=== PATIENT | female | born 1965 | race Caucasian/White ===

== ENCOUNTER 2023-06-20 16:40 | Inpatient (IN) | payer OTHER ==
[~2023-06-20] VITALS: Ht 154.9 cm; Wt 50.4 kg
[2023-06-20 17:29] VITALS: PULSE 129; RESP 18; O2SAT 96
[2023-06-20 17:48] LABS: Alanine Aminotransferase 12 U/L (7-40); Albumin 4.5 g/dL (3.2-4.8); Alkaline Phosphatase 122 U/L (46-116); Anion Gap 8 (5-15); Aspartate Aminotransferase < 8 U/L (13-40); BUN/Creatinine Ratio 11.3 (10.0-20.0); Blood Urea Nitrogen 8 mg/dL (9-23); Calcium 9.6 mg/dL (8.7-10.4); Carbon Dioxide 23 mmol/L (20-30); Chloride 100 mmol/L (98-107); Glucose 129 mg/dL (74-106); Magnesium 1.7 mg/dL (1.6-2.6); Potassium 4.2 mmol/L (3.5-5.1); Sodium 131 mmol/L (136-145)
[2023-06-20 17:49] LABS: Bilirubin, Total 1.2 mg/dL (0.2-1.0); Total Protein 7.1 g/dL (5.7-8.2)
[2023-06-20 18:18] LABS: Basophils # (auto) 0.1 10 ^3/uL (0-0.2); Basophils % (auto) 0.3 % (0.0-2.0); Eosinophils # (auto) 0 10 ^3/uL (0-0.8); Eosinophils % (auto) 0.1 % (0.0-7.0); Hematocrit 46.2 % (36.0-46.0); Lymphocytes % (auto) 10.8 % (10.0-50.0); Mean Corpuscular Hemoglobin 32.6 pg (28.0-32.0); Mean Corpuscular Hgb Conc. 34.7 g/dL (32.0-36.0); Mean Corpuscular Volume 94.1 fL (80.0-100.0); Monocytes # (auto) 1.7 10 ^3/uL (0-1.3); Monocytes % (auto) 9.3 % (0.0-12.0); Neutrophils # (auto) 14.7 10 ^3/uL (1.6-8.6); Neutrophils % (auto) 79.5 % (37.0-80.0); Nucleated Red Blood Cells % 0.1 %; Red Blood Cells 4.91 10^6/uL (4.0-5.20); Red Cell Distribution Width 13.7 % (11.8-14.3); White Blood Cell 18.6 10^3/uL (4.4-10.8)
[2023-06-20] MEDS ORDERED: SODIUM CHLORIDE 0.9% 1,000 ML IV ONE ×2 (18:30→20:45)
[2023-06-20] MEDS ORDERED: IOHEXOL 300 MG/ML 100ML BOTTLE IJ ONE (19:16)
[2023-06-20 19:45] VITALS: PULSE 105; RESP 18; O2SAT 99
[2023-06-20 20:10] LABS: Urine Bacteria FEW /hpf (None Seen); Urine Blood Negative /uL (Negative); Urine Clarity Clear (Clear); Urine Color Yellow (Yellow); Urine Hyaline Cast FEW /lpf (0 - 2); Urine Protein, UAD TRACE (Negative); Urine Urobilinogen Normal (Negative); Urine WBC 4 /hpf (0 - 5)
[2023-06-20] MEDS ORDERED: IOHEXOL 350 MG/ML 100ML IJ ONE (20:14)
[2023-06-20] MEDS ORDERED: PIPERACILLIN-TAZOB 3.375GM 100 ML IV ONE (20:45)
[2023-06-20] MEDS ORDERED: NICOTINE 21MG/24 HR TOPICAL PATCH TD ONE (21:00)
[2023-06-20] MEDS ORDERED: MORPHINE SULFATE INJ 2 MG/ml SYRG IV PRN (21:30)
[2023-06-20] MEDS ORDERED: NITROGLYCERIN 0.4 MG SL TAB SL PRN (21:30)
[2023-06-20] MEDS ORDERED: PANTOPRAZOLE 40 MG/10 ML VIAL INJ IV ONE (21:30)
[2023-06-20 22:03] LABS: INR 1.03 (0.9-1.15); Partial Thromboplastin Time 30.8 SEC (24.5-34.5); Prothrombin Time 10.8 sec (9.3-11.8)
[2023-06-20] MEDS: SODIUM CHLORIDE 0.9% 1,000 ML IV SCH (22:50)
[2023-06-21] VITALS (8 sets, daily range): BP systolic 122–159; BP diastolic 75–90; PULSE 87–109; RESP 16–20; TEMP 97.4–99.2; O2SAT 94–97
[2023-06-21] MEDS: PIPERACILLIN-TAZOB 3.375GM 100 ML IV SCH ×3 (05:44→20:56)
[2023-06-21 06:30] LABS: Alkaline Phosphatase 98 U/L (46-116); Anion Gap 5 (5-15); Aspartate Aminotransferase < 8 U/L (13-40); Calcium 8.8 mg/dL (8.7-10.4); Carbon Dioxide 25 mmol/L (20-30); Chloride 108 mmol/L (98-107); Glucose 126 mg/dL (74-106); Potassium 3.7 mmol/L (3.5-5.1); Sodium 138 mmol/L (136-145)
[2023-06-21 06:31] LABS: Alanine Aminotransferase < 9 U/L (7-40); BUN/Creatinine Ratio 10.6 (10.0-20.0); Blood Urea Nitrogen < 5 mg/dL (9-23); Total Protein 6.5 g/dL (5.7-8.2)
[2023-06-21 06:33] LABS: Basophils # (auto) 0 10 ^3/uL (0-0.2); Basophils % (auto) 0.3 % (0.0-2.0); Eosinophils # (auto) 0.1 10 ^3/uL (0-0.8); Eosinophils % (auto) 0.8 % (0.0-7.0); Hematocrit 41.8 % (36.0-46.0); Hemoglobin 14.4 g/dL (12.2-16.2); Lymphocytes # (auto) 1.3 10 ^3/uL (0.4-5.4); Lymphocytes % (auto) 10.4 % (10.0-50.0); Mean Corpuscular Hemoglobin 32.9 pg (28.0-32.0); Mean Corpuscular Hgb Conc. 34.4 g/dL (32.0-36.0); Mean Corpuscular Volume 95.7 fL (80.0-100.0); Monocytes % (auto) 7.9 % (0.0-12.0); Neutrophils # (auto) 9.8 10 ^3/uL (1.6-8.6); Neutrophils % (auto) 80.6 % (37.0-80.0); Red Blood Cells 4.37 10^6/uL (4.0-5.20); Red Cell Distribution Width 14.1 % (11.8-14.3); White Blood Cell 12.2 10^3/uL (4.4-10.8)
[2023-06-21] MEDS: ONDANSETRON HCL 4 MG/2 ML VIAL IV PRN ×3 (08:45→18:19)
[2023-06-21] MEDS: MORPHINE SULFATE INJ 2 MG/ml SYRG IV PRN ×3 (08:47→18:22)
[2023-06-21] MEDS: SODIUM CHLORIDE 0.9% 1,000 ML IV SCH ×2 (10:00→22:29)
[2023-06-21] MEDS: PANTOPRAZOLE 40 MG/10 ML VIAL INJ IV SCH (10:01)
[2023-06-21] MEDS ORDERED: CLINIMIX PER PHARMACY 0 ML IV SCH (12:30)
[2023-06-21 13:09] LABS: Magnesium 1.8 mg/dL (1.6-2.6)
[2023-06-21 13:11] LABS: Phosphorus 2.5 mg/dL (2.4-5.1)
[2023-06-21] MEDS ORDERED: AMLO1TAB22 PO (14:03)
[2023-06-21] MEDS ORDERED: FAMO-12 PO ×2 (14:03)
[2023-06-21] MEDS ORDERED: AMINO ACID INFUSION IN D10W 1,000 ML IV NR (20:00)
[2023-06-22] MEDS ORDERED: DEXTROSE (50%) 50ML SYRG IV SCH
[2023-06-22 05:00] VITALS: BP 149/90; PULSE 87; RESP 18; TEMP 97.4; O2SAT 96
[2023-06-22] MEDS: PIPERACILLIN-TAZOB 3.375GM 100 ML IV SCH ×2 (05:51→14:18)
[2023-06-22] MEDS: InsuLIN REG 1unit/0.01ml Soln (100units/ml) SC SCH ×4 (06:00→18:20)
[2023-06-22 06:08] LABS: Basophils # (auto) 0 10 ^3/uL (0-0.2); Basophils % (auto) 0.3 % (0.0-2.0); Eosinophils # (auto) 0.1 10 ^3/uL (0-0.8); Eosinophils % (auto) 1.4 % (0.0-7.0); Hematocrit 40.7 % (36.0-46.0); Hemoglobin 13.9 g/dL (12.2-16.2); Lymphocytes # (auto) 1.2 10 ^3/uL (0.4-5.4); Lymphocytes % (auto) 12.5 % (10.0-50.0); Mean Corpuscular Hemoglobin 32.5 pg (28.0-32.0); Mean Corpuscular Hgb Conc. 34.1 g/dL (32.0-36.0); Mean Corpuscular Volume 95.3 fL (80.0-100.0); Monocytes # (auto) 0.9 10 ^3/uL (0-1.3); Neutrophils # (auto) 7.6 10 ^3/uL (1.6-8.6); Neutrophils % (auto) 76.8 % (37.0-80.0); Red Blood Cells 4.27 10^6/uL (4.0-5.20); Red Cell Distribution Width 13.8 % (11.8-14.3); White Blood Cell 9.9 10^3/uL (4.4-10.8)
[2023-06-22 06:16] LABS: Albumin 3.9 g/dL (3.2-4.8); Alkaline Phosphatase 98 U/L (46-116); Anion Gap 5 (5-15); Aspartate Aminotransferase < 8 U/L (13-40); BUN/Creatinine Ratio 9.6 (10.0-20.0); Blood Urea Nitrogen 5 mg/dL (9-23); Carbon Dioxide 27 mmol/L (20-30); Chloride 105 mmol/L (98-107); Glucose 140 mg/dL (74-106); Magnesium 1.8 mg/dL (1.6-2.6); Potassium 3.3 mmol/L (3.5-5.1); Sodium 137 mmol/L (136-145)
[2023-06-22 06:17] LABS: Bilirubin, Total 0.6 mg/dL (0.2-1.0); Phosphorus 2.9 mg/dL (2.4-5.1); Total Protein 6.4 g/dL (5.7-8.2)
[2023-06-22] MEDS: ACCU-CHEK COMFORT CURVE STRIP VI SCH ×4 (06:23→18:21)
[2023-06-22 06:31] LABS: Alanine Aminotransferase < 9 U/L (7-40)
[2023-06-22 08:00] VITALS: PULSE 91
[2023-06-22 09:00] VITALS: BP_SYST 127; BP_SYST 133; BP_DIAS 74; BP_DIAS 81; PULSE 87; PULSE 91; RESP 17; TEMP 98.2; TEMP 99; O2SAT 93; O2SAT 94
[2023-06-22] MEDS ORDERED: POTASSIUM CHL 20MEQ/100ML 100 ML IV ONE (09:00)
[2023-06-22] MEDS: PANTOPRAZOLE 40 MG/10 ML VIAL INJ IV SCH (09:54)
[2023-06-22] MEDS ORDERED: NICOTINE 21MG/24 HR TOPICAL PATCH TD SCH (10:00)
[2023-06-22] MEDS: SODIUM CHLORIDE 0.9% 1,000 ML IV SCH (11:00)
[2023-06-22 13:00] VITALS: BP 127/74; PULSE 91; RESP 17; TEMP 98.2; O2SAT 93
[2023-06-22 17:00] VITALS: BP 149/77; PULSE 96; RESP 20; TEMP 98.2; O2SAT 96
[2023-06-22] MEDS: ONDANSETRON HCL 4 MG/2 ML VIAL IV PRN (18:56)
[2023-06-22 19:23] VITALS: BP 127/74; PULSE 91; RESP 17; TEMP 98.2; O2SAT 93
== END 2023-06-22 20:00 | disposition short-term general hospital (02) | DRG 872 ==
LOC: ER 16:40 → TELE 21:27 → TELE-WESTW 23:56
PROVIDERS: ADMIT Nurse Practitioner; ATTEND Internal Medicine
DX: A41.9 Sepsis, unspecified organism (principal); K57.20 Diverticulitis of large intestine with perforation and abscess without bleeding; E11.9 Type 2 diabetes mellitus without complications; F10.20 Alcohol dependence, uncomplicated; I10 Essential (primary) hypertension; R91.8 Other nonspecific abnormal finding of lung field; Z72.0 Tobacco use; Z80.1 Family history of malignant neoplasm of trachea, bronchus and lung; Z82.3 Family history of stroke; Z82.49 Family history of ischemic heart disease and other diseases of the circulatory system; Z98.51 Tubal ligation status
CPT/HCPCS: 36415; 74177; 80053; 81001; 82962; 83735; 84100; 84484; 85025; 85610; 85730; 86850; 86900; 86901; 87493; 93005; C9113; G0378; J1815; J2405; J2543; J3480